=== PATIENT | female | born 1950 | race Caucasian/White ===

== ENCOUNTER → 2016-08-27 | Outpatient (CLI) | payer OTHER, MEDICARE ==
[~2016-08-27] MED LIST: CLOP75TA PO; IOHEXOL 240 MG/ML 50ML VIAL. PO ONE
--- NOTE | 2016-08-27 14:40 | KCIC ---
CT abdomen and pelvis without contrast Indication: . Right lower quadrant pain for 4 to 5 days. Cholecystectomy. Partial hysterectomy.. Technique: Contiguous axial images are obtained through the abdomen and pelvis. Oral contrast was given. No intravenous contrast per request. Multiplanar reformatted images obtained. Exposure: One or more of the following individualized dose reduction techniques were utilized for this examination: 1. Automated exposure control 2. Adjustment of the mA and/or kV according to patient size 3. Use of iterative reconstruction technique. Findings: No evidence of urinary tract calculus. No evidence of hydronephrosis or ureteric dilatation. Evaluation of solid viscera, bowel and vasculature is compromised by the noncontrast technique. Lower thorax: Small calcified granuloma right lung base. Pneumoperitoneum:No gross pneumoperitoneum. Liver: Unremarkable Spleen: Unremarkable Pancreas: Unremarkable Kidneys: No evidence of the lesion. Adrenals:No evidence of mass. Gallbladder: Surgically absent Aorta: Atheromatous calcifications, no aneurysm. Lymph nodes: No significant enlargement GI tract: No bowel obstruction. Mild scattered colonic diverticula. No paracolonic inflammation. Appendix:Visualized, and appears within normal limits. Ascites: No gross ascites. Urinary bladder: Not opacified, but no apparent abnormality. No evidence of pelvic mass, Bones: Multilevel osteophytes at the visualized spine with spinal stenosis. IMPRESSION: 1. Appendix visualized and appears normal. 2. No acute findings in the abdomen or pelvis. Electronically signed by: Trevor Land MD (08/27/2016 2:37 PM) [id number]
== END | disposition home or self-care (01) ==
LOC: KCIC CT 13:03
PROVIDERS: ATTEND Nurse Practitioner Family
DX: K57.30 Diverticulosis of large intestine without perforation or abscess without bleeding (principal); I70.0 Atherosclerosis of aorta; J84.10 Pulmonary fibrosis, unspecified; M25.70 Osteophyte, unspecified joint; Z90.49 Acquired absence of other specified parts of digestive tract
CPT/HCPCS: 74176; Q9966